=== PATIENT | male | born 1960 | race Caucasian/White ===

== ENCOUNTER 2019-09-10 18:26 | Emergency (ER) | payer BC ==
[~2019-09-10] VITALS: Ht 185.4 cm; Wt 129.3 kg
[2019-09-10 18:57] VITALS: BP 141/102; Ht 185.4 cm; Wt 129.3 kg
== END 2019-09-10 20:05 | disposition left against medical advice (07) ==
LOC: ED 18:26
DX: S82.401A Unspecified fracture of shaft of right fibula, initial encounter for closed fracture (principal); I10 Essential (primary) hypertension; W23.0XXA Caught, crushed, jammed, or pinched between moving objects, initial encounter; Y93.89 Activity, other specified; Y92.89 Other specified places as the place of occurrence of the external cause; Y99.8 Other external cause status